=== PATIENT | female | born 1970 | race Asian ===

== ENCOUNTER 2023-03-02 02:03 | Emergency (ER) | payer OTHER ==
[2023-03-02 02:17] VITALS: BP 116/86; PULSE 63; RESP 18; TEMP 98; BMI 23.0
== END 2023-03-02 06:43 | disposition home or self-care (01) ==
LOC: JER 02:03
DX: S00.31XA Abrasion of nose, initial encounter (principal); S00.81XA Abrasion of other part of head, initial encounter; S80.211A Abrasion, right knee, initial encounter; S80.212A Abrasion, left knee, initial encounter; S69.92XA Unspecified injury of left wrist, hand and finger(s), initial encounter; M25.532 Pain in left wrist; W18.39XA Other fall on same level, initial encounter; Y93.B9 Activity, other involving muscle strengthening exercises
CPT/HCPCS: 73110-TC-LT-FY; 73130-TC-LT-FY; 99283-25